=== PATIENT | female | born 2000 | race African-American/Black ===

== ENCOUNTER 2023-01-24 17:23 | Emergency (ER) | payer MEDICAID, OTHER, SELFPAY | END 2023-01-24 18:22 | disposition home or self-care (01) | LOC: CSHERS 17:23 | DX: R07.9 Chest pain, unspecified (principal); J45.909 Unspecified asthma, uncomplicated | CPT/HCPCS: 71045; 93005 ==

== ENCOUNTER 2023-03-04 10:39 | Emergency (ER) | payer OTHER ==
[2023-03-04] MEDS ORDERED: Dexamethasone 10 MG/ML VIAL ONE (11:54)
[2023-03-04] MEDS ORDERED: Ketorolac Tromethamine 30 MG/ML VIAL ONE (11:54)
[2023-03-04] MEDS ORDERED: Dexamethasone 4 MG TAB ONE (11:55)
== END 2023-03-04 13:15 | disposition home or self-care (01) ==
LOC: CSHERS 10:39
DX: J02.9 Acute pharyngitis, unspecified (principal)
CPT/HCPCS: 87430; 96372; 99284; J1100; J1885; J8540